=== PATIENT | female | born 1980 | race Caucasian/White ===

== ENCOUNTER 2025-07-01 00:04 | Emergency (ER) | payer OTHER ==
[~2025-07-01] VITALS: Ht 157.5 cm; Wt 57.8 kg
[2025-07-01] MEDS ORDERED: ALBUTEROL/IPRATROPIUM 3 ML NEB INH PRN (00:30)
[2025-07-01] MEDS ORDERED: VENTOLIN HFA18 GM (01:00)
[2025-07-01] MEDS ORDERED: PROVOCHOLINE100 MG INH (01:00)
[2025-07-01] MEDS ORDERED: ALBUTEROL SULFATE 8 GM HOME.PACK INH ONE (01:15)
[2025-07-01] MEDS ORDERED: methylPREDNISolone 4 MG HOME.PACK PO ONE (01:15)
[2025-07-01 01:31] VITALS: BP 131/78
--- NOTE | 2025-07-01 14:01 | EKG ---
[facility] [address] [facility] [place] [address] Signed Normal sinus rhythm with sinus arrhythmia Normal ECG No previous ECGs available Confirmed by Baldo Crook MD () on 07/01/2025 2:00:53 PM Electronically Signed By: BALDO CROOK MD 07/01/25 1401 PATIENT NAME: CAITLYN GÓMEZ Electrocardiogram DATE OF : 76 PHYSICIAN: BALDO CROOK MD REPORT #: [id number] REPORT IS CONFIDENTIAL AND NOT TO BE RELEASED WITHOUT AUTHORIZATION
== END 2025-07-01 01:33 | disposition home or self-care (01) ==
LOC: ED 00:04
DX: J20.9 Acute bronchitis, unspecified (principal); R91.1 Solitary pulmonary nodule; Z88.0 Allergy status to penicillin; Z88.1 Allergy status to other antibiotic agents; Z88.2 Allergy status to sulfonamides
CPT/HCPCS: 71045; 80053; 83735; 83880; 84484; 84703; 85025; 93005; 93010; 94640; 94664; 99285-25